=== PATIENT | male | born 1990 | race Native Hawaiian/Other Pacific Islander ===

== ENCOUNTER 2019-01-17 13:41 | Emergency (ER) | payer OTHER ==
[~2019-01-17] VITALS: Ht 177.8 cm; Wt 109.8 kg
[2019-01-17 13:44] VITALS: TEMP 98.1
[2019-01-17 14:19] LABS: PLATELET COUNT 152 K/uL (142-355)
[2019-01-17 16:59] VITALS: BP 159/96
== END 2019-01-17 16:59 | disposition home or self-care (01) ==
LOC: ED 13:41
PROVIDERS: Emergency Medicine
DX: N13.2 Hydronephrosis with renal and ureteral calculous obstruction (principal)
CPT/HCPCS: 80053; 81000; 85027; 96360; 96375; 99284; J1885; J2175; J2405